=== PATIENT | female | born 1975 | race Two or more races ===

== ENCOUNTER 2021-08-08 23:33 | Emergency (ER) | payer SELFPAY ==
[~2021-08-08] VITALS: Ht 162.6 cm; Wt 65.8 kg
[2021-08-08 23:33] VITALS: BP 180/94
== END 2021-08-09 02:57 | disposition left against medical advice (07) ==
LOC: ER 23:39
DX: R10.13 Epigastric pain (principal); Z53.21 Procedure and treatment not carried out due to patient leaving prior to being seen by health care provider